=== PATIENT | male | born 1975 | race African-American/Black ===

== ENCOUNTER → 2019-11-17 | Emergency (ER) | payer BC ==
[~2019-11-17] MED LIST: DEXAMETHASONE 4 MG TABLET PO ONE
--- NOTE | 2019-11-17 06:10 | RAD ---
CHEST PA LATERAL History: Shortness of air Comparison: None. Findings: The cardiomediastinal silhouette is normal. There are calcified right hilar lymph nodes. Pulmonary vasculature is normal. The lungs are clear. No pleural effusion or pneumothorax is seen. There is no acute bone abnormality. IMPRESSION: No acute cardiopulmonary process. Electronically signed by: Cyrus Maya MD (11/17/2019 6:07 AM) [id number]
== END ==
LOC: ER 02:43
DX: J45.909 Unspecified asthma, uncomplicated (principal); Z53.21 Procedure and treatment not carried out due to patient leaving prior to being seen by health care provider
CPT/HCPCS: 71046; 82962; J8540